=== PATIENT | male | born 1995 ===

== ENCOUNTER 2016-10-17 02:31 | Emergency (ER) | payer SELFPAY ==
[~2016-10-17] VITALS: Ht 177.8 cm; Wt 68.0 kg
[2016-10-17 02:41] VITALS: BP 149/94
[2016-10-17 03:19] VITALS: BP 142/84
[2016-10-17 05:43] VITALS: BP 115/69
--- NOTE | 2016-10-17 05:57 | Emergency Room Report ---
History of Present Illness General Chief Complaint: Alcohol Intoxication Source: Patient, EMS Present Illness HPI 21-year-old male presents ED for evaluation. Per EMS patient was found at his sober living house intoxicated and they called 911. Patient brought in. No signs of distress. Denies any trauma. No reported drug use. Patient admits alcohol use. Denies any drug use. Denies any headache, blurry vision, nausea or vomiting. Denies chest pain or shortness of breath. No other aggravating relieving factors. Denies any other associated symptoms Allergies: Coded Allergies: No Known Allergies (Unverified , 10/17/16) Patient History Past Medical History: psych hx Past Surgical History: none Pertinent Family History: none Social History: Reports: alcohol use, Denies: drug use, smoking Immunizations: UTD Reviewed Nursing Documentation: PMH: Agreed, PSxH: Agreed Nursing Documentation-PMH History Of Psychiatric Problem: Yes Review of Systems All Other Systems: negative except mentioned in HPI Physical Exam Vital Signs Date Time Temp Pulse Resp B/P Pulse Ox O2 Delivery O2 Flow Rate FiO2 10/17/16 02:24 97.3 96 18 152/77 97 Room Air Sp02 EP Interpretation: reviewed, normal General Appearance: no apparent distress, GCS 15, non-toxic, other - intoxicated Head: normocephalic Eyes: bilateral eye PERRL, bilateral eye normal inspection ENT: normal ENT inspection Neck: normal inspection Respiratory: chest non-tender, lungs clear, normal breath sounds, speaking full sentences Cardiovascular #1: regular rate, rhythm, no edema Gastrointestinal: normal bowel sounds, non tender, soft, non-distended, no guarding, no rebound Rectal: deferred Genitourinary: no CVA tenderness Musculoskeletal: normal inspection Neurologic: other - intoxicated Psychiatric: other - intoxicated Skin: normal inspection Lymphatic: normal inspection Medical Decision Making Diagnostic Impression: Primary Impression: Acute alcoholic intoxication Qualified Codes: F10.120 - Alcohol abuse with intoxication, uncomplicated ER Course Hospital Course 21-year-old male presents to ED status post EtOH intoxication. found at sober living house Clinical course Patient placed on stretcher. Given that patient is able to provide an adequate history, I see no need to check blood work or place an IV. Patient allowed to sleep. My assessment shows no evidence of SI/HI requiring psychiatric evaluation. Patient allowed to rest in now awake alert oriented x3. ambulating without difficulty. Diagnosis - ETOH intoxication stable and discharged to home. Followup with PMD. Return to ED if symptoms recur or worsen Last Vital Signs Date Time Temp Pulse Resp B/P Pulse Ox O2 Delivery O2 Flow Rate FiO2 10/17/16 05:43 71 18 115/69 97 Room Air 10/17/16 02:41 97.3 Status: improved Disposition: HOME, SELF-CARE Condition: Stable Referrals: NOT CHOSEN [facility]/,REFERRING (PCP) ELMA MOYER M.D. October 17, 2016 05:57
[2016-10-17 09:00] VITALS: BP 123/21
[2016-10-17 12:27] VITALS: BP 118/65
[2016-10-17 12:28] VITALS: BP 123/21
== END 2016-10-17 12:30 | disposition home or self-care (01) ==
LOC: EDBD 02:31 → EMR 05:03
DX: F10.120 Alcohol abuse with intoxication, uncomplicated (principal)
CPT/HCPCS: 99284